=== PATIENT | female | born 1975 | race Caucasian/White ===

== ENCOUNTER 2021-05-21 10:39 | Outpatient (CLI) | payer BC ==
[2021-05-21 12:23] LABS: #Eosinphils 0.1 10x3/uL (0.0-0.5); #Monocytes 0.6 10x3/uL (0.0-1.1); #Neutrophils 4.6 10x3/uL (1.5-8.4); %Basophils 0.3 % (0.0-2.0); %Eosinophils 1.8 % (0.0-6.0); %Lymphocytes 13.4 % (18.0-47.0); %Monocytes 9.8 % (0.0-10.0); %Neutrophils 74.2 % (40.0-75.0); Anion Gap 14 mmol/L (10-20); BUN (Urea Nitrogen) 11 mg/dL (7.0-18.7); Calc. Creatinine Clearance 0 mL/min (70-130); Calcium 9.3 mg/dL (7.8-10.44); Carbon Dioxide 23 mmol/L (22-29); Chloride 107 mmol/L (98-107); Glucose 97 mg/dL (70-105); Hemoglobin 11.3 g/dL (12.0-15.5); Mean Corpuscular Hemoglobin 31.5 pg (27.0-33.0); Mean Corpuscular Volume 98.3 fl (81.6-98.3); Mean Platelet Volume 10.3 fl (7.4-10.4); Platelet Count 241 10x3/uL (150-450); Potassium 4.3 mmol/L (3.5-5.1); RBC Distribution Width 13.1 % (11.5-14.5); Red Blood Cell (RBC) Count 3.59 10x6/uL (3.90-5.03); Sodium 140 mmol/L (136-145); White Blood Cell (WBC) Count 6.1 10x3/uL (3.5-10.5)
[2021-05-21 19:44] LABS: SARS-CoV-2 PCR by NAA Not Detected (NotDetected)
== END 2021-05-21 10:40 | disposition home or self-care (01) ==
LOC: LABBT 10:39
PROVIDERS: ATTEND Specialist
DX: Z01.812 Encounter for preprocedural laboratory examination (principal); C50.912 Malignant neoplasm of unspecified site of left female breast; Z20.822 Contact with and (suspected) exposure to COVID-19
CPT/HCPCS: 80048; 85025; U0003; U0005

== ENCOUNTER 2021-05-24 07:17 | Observation (INO) | payer BC ==
[2021-05-24] MEDS ORDERED: Acetaminophen 500 MG TAB ONE (08:37)
[2021-05-24] MEDS ORDERED: Ketorolac Tromethamine 30 MG/ML VIAL ONE (08:37)
[2021-05-24] MEDS ORDERED: Midazolam HCl 2 mg/2 ml Vial ONE (10:11)
[2021-05-24] MEDS ORDERED: Fentanyl 100 MCG/2 ML VIAL ONE ×3 (10:49→16:09)
[2021-05-24] MEDS ORDERED: EPINEPHrine 1 MG/ML AMP ONE (10:52)
[2021-05-24] MEDS ORDERED: Bupivacaine 0.25% HCL 30 ML VIAL ONE (10:52)
[2021-05-24] MEDS ORDERED: PHENYLEPHRINE-NS 100 MCG/ML 10 ML SYRINGE ONE (11:15)
[2021-05-24] MEDS ORDERED: Dexamethasone 20 MG/5 ML VIAL ONE (11:15)
[2021-05-24] MEDS ORDERED: Glycopyrrolate 0.2 MG/ML 5 ML SYRINGE ONE (11:15)
[2021-05-24] MEDS ORDERED: Ondansetron PF 4 MG/2 ML Vial ONE (11:15)
[2021-05-24] MEDS ORDERED: Lidocaine 1% PF 5 ML VIAL ONE (11:15)
[2021-05-24] MEDS ORDERED: Rocuronium Bromide 10 MG/ML (10ML VIAL) ONE (11:15)
[2021-05-24] MEDS ORDERED: PROPOFOL 200 MG/20 ML VIAL ONE (11:15)
[2021-05-24] MEDS ORDERED: Isosulfan Blue 50 MG/5 ML VIAL ONE (11:26)
[2021-05-24] MEDS ORDERED: HYDROmorphone 0.5 MG/0.5 ML SYRINGE ONE (14:33)
[2021-05-24] MEDS ORDERED: Promethazine HCl 25 MG/ML VIAL IVPB PRN (15:23)
[2021-05-24] MEDS ORDERED: HYDROmorphone 2 MG/ML VIAL SLOW IVP PRN (15:23)
[2021-05-24] MEDS ORDERED: Ondansetron HCl/PF 4 MG/2 ML Vial IVP PRN (15:23)
[2021-05-24] MEDS ORDERED: Promethazine HCl 25 MG/ML VIAL ONE (15:29)
[2021-05-24] MEDS ORDERED: D5 1/2 NS w/20 mEq KCL 1,000 ML ONE (16:11)
[2021-05-24] MEDS ORDERED: Morphine 4 MG/ML VIAL SLOW IVP PRN (16:42)
[2021-05-24] MEDS ORDERED: Dextrose 5% in Water 1,000 ML IV PRN (16:42)
[2021-05-24] MEDS ORDERED: Promethazine HCl 25 MG/ML VIAL IM PRN (16:42)
[2021-05-24] MEDS ORDERED: HYDROcodone/Acetaminophen 7.5/325 mg Tablet PO PRN (16:42)
[2021-05-24] MEDS ORDERED: hydrALAZINE 20 MG/ML VIAL SLOW IVP PRN (16:42)
[2021-05-24] MEDS ORDERED: Ondansetron PF 4 MG/2 ML Vial IVP PRN (16:42)
[2021-05-24] MEDS ORDERED: Morphine 2 MG/ML VIAL SLOW IVP PRN (16:42)
[2021-05-24] MEDS ORDERED: Dextrose 50% Abboject 50 ML SYRINGE SLOW IVP PRN (16:42)
[2021-05-24] MEDS: HYDROcodone/Acetaminophen 7.5/325 mg Tablet PO PRN (18:56)
[2021-05-24 19:00] VITALS: BMI 30.5
[2021-05-24] MEDS: Famotidine 20 MG TAB PO SCH (20:58)
[2021-05-24] MEDS: D5 1/2 NS w/20 mEq KCL 1,000 ML IV SCH (22:22)
[2021-05-25] MEDS: D5 1/2 NS w/20 mEq KCL 1,000 ML IV SCH ×2 (00:09→10:12)
[2021-05-25] MEDS: HYDROcodone/Acetaminophen 7.5/325 mg Tablet PO PRN ×2 (02:56→10:10)
[2021-05-25 06:04] LABS: #Lymphocytes 0.7 thou/uL (1.20-3.40); #Monocytes 0.5 thou/uL (0.11-0.59); #Neutrophils 10.1 thou/uL (1.40-6.50); %Eosinophils 0.1 % (0.0-10.0); %Lymphocytes 6.2 % (21.0-51.0); %Monocytes 4.8 % (0.0-10.0); %Neutrophils 88.9 % (42.0-75.0); Hemoglobin 9.8 g/dL (12.0-16.0); Mean Corpuscular HGB CONC 33.5 g/dL (32.0-36.0); Mean Corpuscular Hemoglobin 32.4 pg (27.0-31.0); Mean Corpuscular Volume 96.7 fL (78.0-98.0); Mean Platelet Volume 7.8 fL (7.4-10.4); Platelet Count 291 thou/uL (130-400); RBC Distribution Width 12.7 % (11.5-14.5); Red Blood Cell (RBC) Count 3.02 mill/uL (4.20-5.40); White Blood Cell (WBC) Count 11.4 thou/uL (4.8-10.8)
[2021-05-25] MEDS: Famotidine 20 MG TAB PO SCH (10:08)
[2021-05-25 11:39] VITALS: BP 98/65; TEMP 98
== END 2021-05-25 12:25 | disposition home or self-care (01) ==
LOC: SDC 07:17 → SJJU 15:43 → SDC 16:00 → SJJU 16:42
PROVIDERS: ADMIT Specialist; ATTEND Specialist
PROC: 0HTV0ZZ Resection of Bilateral Breast, Open Approach (ICD-10-PCS; principal; 2021-05-24)
PROC: 07B60ZX Excision of Left Axillary Lymphatic, Open Approach, Diagnostic (ICD-10-PCS; 2021-05-24)
DX: C50.212 Malignant neoplasm of upper-inner quadrant of left female breast (principal); N60.22 Fibroadenosis of left breast; Z17.1 Estrogen receptor negative status [ER-]; Z85.71 Personal history of Hodgkin lymphoma; Z87.891 Personal history of nicotine dependence
CPT/HCPCS: 36415; 78195; 85025; 88307; 88331; 88332; 88342; A9541; G0378; J0171; J0690; J1100; J1170; J1885; J2250; J2405; J2550; J2704; J3010; J3480; Q9968; S0020